=== PATIENT | male | born 2000 | race Caucasian/White ===

== ENCOUNTER 2021-04-15 14:32 | Emergency (ER) | payer OTHER ==
[~2021-04-15] VITALS: Ht 182.9 cm; Wt 181.0 kg
[2021-04-15] MEDS ORDERED: DEXAMETHASONE SOD PHOS 20 MG/5 ML VIAL. IV ONE (14:45)
[2021-04-15] MEDS ORDERED: IV NORMAL SALINE 1000ML BAG 1,000 ML IV ONE (14:45)
[2021-04-15] MEDS ORDERED: AMPICILLIN/SULBACTAM 3 GM in IV NORMAL SALINE 100ML 100 ML IV ONE (15:15)
--- NOTE | 2021-04-15 15:35 | PHYS DOC ---
Past Medical History Past Surgical History: No Surgical History General Adult EDM: Chief Complaint: SORE THROAT HPI: HPI: 20-year-old obese male with no significant past medical history presents to the ED with complaints of sore throat (worse on the left side) and bilateral earache for the past week, later states 4 days. Was seen at [facility] days ago and and had a rapid strep and Covid test that was negative. States the anterior portion of his left neck is sore and it hurts to eat. Last meal was a burrito at dinner yesterday. States his speech is different. No history of allergic reactions. Is not vaccinated for Covid. Review of Systems: Review of Systems: Constitutional: Denies fever or chills. [] Eyes: Denies change in visual acuity or red eye HENT: Denies nasal congestion or rhinorrhea or drooling Respiratory: Denies cough or shortness of breath. [] Cardiovascular: Denies chest pain or edema. [] GI: Denies nausea, vomiting, Musculoskeletal: Denies back pain or joint pain. [] Integument: Denies rash or diaphoresis Neurologic: Denies headache, focal weakness or sensory changes. [] Endocrine: Denies polyuria or polydipsia. [] Lymphatic: Denies swollen glands. [] Psychiatric: Denies depression or anxiety. [] Heart Score: C/O Chest Pain: No Risk Factors: Risk Factors: DM, Current or recent (<one month) smoker, HTN, HLP, family history of CAD, obesity. Risk Scores: Score 0 - 3: 2.5% MACE over next 6 weeks - Discharge Home Score 4 - 6: 20.3% MACE over next 6 weeks - Admit for Clinical Observation Score 7 - 10: 72.7% MACE over next 6 weeks - Early Invasive Strategies Current Medications: Current Medications Medications (Trade) Dose Ordered Sig/Ema Start Time Stop Time Status Last Admin Dose Admin Ampicillin Sodium/ Sulbactam Sodium 3 gm/Sodium Chloride 100 ml @ 200 mls/hr 1X ONCE 04/15/21 15:15 04/15/21 15:44 04/15/21 15:22 200 MLS/HR Dexamethasone Sodium Phosphate (Decadron) 10 mg 1X ONCE 04/15/21 14:45 04/15/21 15:12 DC 04/15/21 15:23 10 MG Sodium Chloride 1,000 ml @ 1,000 mls/hr 1X ONCE 04/15/21 14:45 04/15/21 15:44 04/15/21 15:21 1,000 MLS/HR Allergies: Allergies: Allergies Coded Allergies Type Severity Reaction Last Updated Verified No Known Drug Allergies 04/15/21 No Physical Exam: PE: Constitutional: Well developed, well nourished, no acute distress, non-toxic appearance. HENT: Normocephalic, atraumatic, bilateral erythematous tympanic membranes without effusions, erythematous and exudative bilateral tonsils (left worse than right), uvula shifted to the right, no obliteration of auricular crease, no pain over mastoid, moist mucous membranes Eyes: PERRLA, EOMI, conjunctiva normal, no discharge. Neck: Normal range of motion, supple, no nuchal rigidity, anterior cervical left sided adenopathy Cardiovascular: S1/2 present, tachycardic Lungs & Thorax: Speaking in full sentences, bilateral equal chest rise, no tachypnea or increased work of breathing, very mild muffled speech, no drooling or spitting/controlling secretions Skin: Warm, dry, no erythema, no rash. [] Extremities: No tenderness, no cyanosis, no lower extremity edema Neurologic: Alert and oriented X 3, normal motor function, normal sensory function, no focal deficits noted. [] Psychologic: Affect normal, judgement normal, mood normal. [] Current Patient Data: Vital Signs: Vital Signs Date Time Temp Pulse Resp B/P (MAP) Pulse Ox O2 Delivery O2 Flow Rate FiO2 04/15/21 14:32 98.5 120 16 173/90 97 Room Air 98.5 EKG: EKG: [] Radiology/Procedures: Radiology/Procedures: IMAGING REPORT Signed PATIENT: HAYLIE MCKEE ACCOUNT: [id number] : 2000 LOCATION: ER AGE: 20 SEX: M EXAM STATUS: REG ER ORD. 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 PROCEDURE: CT SOFT TISSUE NECK W/CONTRAST Exam: CT neck with contrast INDICATION: Left anterior neck pain, sore throat TECHNIQUE: Sequential axial images through the neck obtained following the administration of 70 mL of Omni 300 IV contrast. Sagittal and coronal reformatted images were reconstructed from the axial data and reviewed. Exposure: One or more of the following in the visualized dose reduction te chniques were utilized for this examination: 1. Automated exposure control 2. Adjustment of the MA and/or KV according to patient size 3. Use of iterative of reconstructive technique Comparisons: None FINDINGS: Visualized intracranial structures are unremarkable. Globes and orbital contents are normal. Mild air-fluid level noted within the right maxillary sinuses. Cervical vasculature is patent. There is enlargement of the adenoid tonsils and palatine tonsils bilaterally. Within the central portion of the left palatine tonsil there is a 1.5 cm area of hypoattenuation may relate to a small fluid collection. The oropharynx, hypopharynx and larynx are unremarkable. Numerous enlarged upper cervical lymph nodes are noted bilaterally. No suspicious osseous lesions or acute fractures. IMPRESSION: Enlargement of the adenoid and palatine tonsils with a vague fluid collection within the left palatine tonsil measuring approximately 1.5 cm favored represent small abscess. Electronically signed by: Faustino Mccauley MD (04/15/2021 5:14 PM) [facility] DICTATED and SIGNED BY: FAUSTINO MCCAULEY MD DATE: 04/15/21 [id number] 0 Course & Med Decision Making: Course & Med Decision Making Pertinent Labs and Imaging studies reviewed. (See chart for details) On reevaluation patient with clear speech, no muffled speech no drooling no stridor. Pts' mother present on re-evaluation, (patient consents to his/her/their knowledge and involvement in pts' medical care), -she also agrees patient speech has returned to normal. We discussed option for I&D drainage versus antibiotics. CT with questionable fluid collection. Patient declined I&D stating medicines given in the ED significantly improved his pain. Patient is tolerating oral fluids. Patient understands urgent follow-up with ENT for further management. Will discharge home with strict ED return precautions were given for worsening pain, head or neck swelling, difficulties breathing, speech changes, drooling or spitting. Encouraged urgent outpatient follow-up with PMD and ENT for definitive management. Life-threatening processes were considered but are low suspicion at this time, given history, physical exam and ED workup. Pt was educated on all prescription medications and adverse effects. All patient's questions were answered and pt was stable at time of discharge. Life/limb-threatening differential includes but is not limited to, elisa's angina, peritonsillar abscess, retropharyngeal abscess, epiglottitis, bacterial tracheitis, uvulitis, sepsis, mastoiditis, traumatic injury, carotid/vertebral dissection, meningitis/encephalitis, intracranial aneurysms or neurologic process. I have spoken with the patient and/or caregivers. I explained the patient's co ndition, diagnoses and treatment plan based on the information available to me at this time. I have answered the patient and/or caregiver's questions and addressed any concerns. The patient and/or caregivers have a good understanding of patient's diagnosis, condition and treatment plan as can be expected at this point. Vital signs have been stable. Patient's condition is stable and appropriate for discharge from the emergency department. Patient will pursue further outpatient evaluation with primary care physician or other designated or consulting physician as outlined in the discharge instructions. The patient and/or caregivers are agreeable to this plan of care and follow-up instructions have been explained in detail. The patient and/or caregivers have received these instructions in written form and have expressed an understanding of the discharge instructions. The patient and/or caregivers are aware that any significant change of condition or worsening of symptoms should prompt immediate return to this or the closest emergency department or call to 911. Zabrina Disclaimer: Zabrina Disclaimer: This electronic medical record was generated, in whole or in part, using a voice recognition dictation system. 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 We trust that you had a positive experience in our Emergency Department. If you wish to speak to the department management, you may call the Director at [phone]. YOUR FOLLOW UP INSTRUCTIONS ARE FOLLOWS: 1. Do you have a private Doctor? If you do not have a private doctor, please ask for a resource list of physicians or clinics that may be able to assist you with follow up care. 2. The Emergency Physicain has interpreted your x-rays. The X-Ray specialist will also review them. If there is a change in the findings, you will be notified in 48 hours when at all possible. 3. A lab test or culture has been done, your results will be reviewed and you will be notified if you need a change in treatment. ADDITIONAL INSTRUCTIONS AND INFORMATION: 1. Your care today has been supervised by a physician who is specially trained in emergency care. Many problems require more than one evaluation for a complete diagnosis and treatment. We recommend that you schedule your follow up appointment as recommended to ensure complete treatment of you illness or injury. If you are unable to obtain follow up care and continue to have a problem, or if your condition worsens, we recommend that you return to the ED. 2. We are not able to safely determine your condition over the phone nor are we able to give sound medical advice over the phone. For these safety reasons, if you call for medical advice we will ask you to come to the ED for further evaluation. 3. If you have any questions regarding these discharge instructions please call the ED at [phone]. SAFETY INFORMATION: In the interest of safety, wellness, and injury prevention; we encourage you to wear your sealbelt, if you smoke; quite smoking, and we encourage family to use a protective helmet for bicycling and other sporting events that present an increased risk for head injury. IF YOUR SYMPTOMS WORSEN OR NEW SYMPTOMS DEVELOP, OR YOU HAVE CONCERNS ABOUT YOUR CONDITION; OR IF YOUR CONDITION WORSENS WHILE YOU ARE WAITING FOR YOUR FOLLOW UP APPOINTMENT; EITHER CONTACT YOUR PRIMARY CARE DOCTOR, THE PHYSICIAN WHOSE NAME AND NUMBER YOU WERE GIVEN, OR RETURN TO THE ED IMMEDIATELY. Scripts Benzocaine/Menthol (CEPACOL SORE THROAT LOZENGE) 1 Each Lozenge 1 TAB PO Q4HRS for sore throat for 3 Days, #18 TAB 0 Refills Prov: JEFFERSON WOODWARD DO 04/15/21 Amoxicillin/Potassium Clav (AUGMENTIN 875-125 TABLET) 1 Each Tablet 1 TAB PO BID for 10 Days, #20 TAB 0 Refills Prov: JEFFERSON WOODWARD DO 04/15/21 JEFFERSON WOODWARD DO Apr 15, 2021 15:35
[2021-04-15 15:54] LABS: ALBUMIN/GLOBULIN RATIO 0.9 (1.0-1.7); CALCIUM 9.8 mg/dL (8.5-10.1); CREATININE 0.8 mg/dL (0.7-1.3); GFR 124.5; POTASSIUM 4.4 mmol/L (3.5-5.1); TOTAL BILIRUBIN 0.9 mg/dL (0.2-1.0); TOTAL PROTEIN 8.7 g/dL (6.4-8.2)
[2021-04-15 16:08] LABS: BASO # 0.1 x10^3/uL (0.0-0.2); BASO % 1 % (0-3); EOS # 0.1 x10^3/uL (0.0-0.7); EOS % 0 % (0-3); HEMATOCRIT 42.4 % (39.0-53.0); HEMOGLOBIN 14.6 g/dL (13.0-17.5); LYMPH # 1.9 x10^3/uL (1.0-4.8); LYMPH % 11 % (24-48); MEAN CORPUSCULAR HEMOGLOBIN 29 pg (25-35); MEAN CORPUSCULAR HGB CONC 35 g/dL (31-37); MEAN CORPUSCULAR VOLUME 84 fL (79-100); MONO # 1.3 x10^3/uL (0.0-1.1); MONO % 8 % (0-9); NEUT # 13.4 x10^3/uL (1.8-7.7); NEUT % 80 % (31-73); PLATELET COUNT 250 x10^3/uL (140-400); RED BLOOD COUNT 5.03 x10^6/uL (4.30-5.70); RED CELL DISTRIBUTION WIDTH 13.3 % (11.5-14.5); WHITE BLOOD COUNT 16.8 x10^3/uL (4.0-11.0)
[2021-04-15 16:22] LABS: MONONUCLEOSIS PATIENT NEGATIVE (NEGATIVE)
[2021-04-15] MEDS ORDERED: IOHEXOL 300 MG/ML 100ML VIAL. IV ONE (16:30)
[2021-04-15] MEDS ORDERED: CONTRAST GIVEN. MC PRN (16:30)
[2021-04-15 17:03] LABS: % ATYL 1 % (0-0); % LYMPHS 10 % (24-48); % MONOS 4 % (0-10); % SEGS 85 % (35-66); PLT ESTIMATE ADEQUATE (ADEQUATE)
--- NOTE | 2021-04-15 17:17 | RAD ---
Exam: CT neck with contrast INDICATION: Left anterior neck pain, sore throat TECHNIQUE: Sequential axial images through the neck obtained following the administration of 70 mL of Omni 300 IV contrast. Sagittal and coronal reformatted images were reconstructed from the axial data and reviewed. Exposure: One or more of the following in the visualized dose reduction techniques were utilized for this examination: 1. Automated exposure control 2. Adjustment of the MA and/or KV according to patient size 3. Use of iterative of reconstructive technique Comparisons: None FINDINGS: Visualized intracranial structures are unremarkable. Globes and orbital contents are normal. Mild air -fluid level noted within the right maxillary sinuses. Cervical vasculature is patent. There is enlargement of the adenoid tonsils and palatine tonsils bilaterally. Within the central port ion of the left palatine tonsil there is a 1.5 cm area of hypoattenuation may relate to a small fluid collection. The oropharynx, hypopharynx and larynx are unremarkable. Numerous enlarged upper cervical lymph nodes are noted bilaterally. No suspicious osseous lesions or acute fractures. IMPRESSION: Enlargement of the adenoid and palatine tonsils with a vague fluid collection within the left palatin e tonsil measuring approximately 1.5 cm favored represent small abscess. Electronically signed by: Faustino Man MD (04/15/2021 5:14 PM) [facility]
[2021-04-15 18:30] VITALS: BP 150/73
[2021-04-15] MEDS ORDERED: BENZ1LOZ48 PO (18:38)
[2021-04-15] MEDS ORDERED: AMOX1TAB61 PO (18:38)
--- NOTE | 2021-04-17 10:51 | NUR ---
IP: Attempted to contact pt concerning covid results. No answer, left a voicemail to return the call.
--- NOTE | 2021-04-17 11:04 | NUR ---
IP: Mother returned my phone call. Pt still having difficulty talking. Informed her of son's negative covid test. She verbalized understanding.
== END 2021-04-15 18:52 | disposition home or self-care (01) ==
LOC: ER 14:32
DX: J36 Peritonsillar abscess (principal); Z20.822 Contact with and (suspected) exposure to COVID-19
CPT/HCPCS: 36415; 70491; 80053; 85007; 85025; 86308; 87070; 87426; 87880; 96365; 96375; 99285; J0295; J1100; J7030; Q9967; U0003; U0005